=== PATIENT | male | born 1965 | race Caucasian/White ===

== ENCOUNTER 2019-01-16 08:03 | Day surgery (SDC) | payer BC ==
[~2019-01-16] VITALS: Ht 177.8 cm; Wt 124.7 kg
[2019-01-16] MEDS ORDERED: MUPIROCIN 2% TOPICAL OINTMENT 22 GM ONE (14:10)
[2019-01-16] MEDS ORDERED: PROPOFOL 200MG/ 20ML VIAL (DIPRIVAN) IV ONE (14:10)
[2019-01-16] MEDS ORDERED: MIDAZOLAM HCL 5 MG/ML VIAL (VERSED) IV ONE (14:10)
[2019-01-16] MEDS ORDERED: LR 1,000 ML IV.SOLN IV ONE (14:10)
[2019-01-16] MEDS ORDERED: LEVOFLOXACIN 500 MG/D5W 100 ML PIGGYBACK IV ONE (14:10)
[2019-01-16] MEDS ORDERED: OXYMETAZOLINE HCL 0.05% NASAL SPRAY NS ONE (14:10)
[2019-01-16] MEDS ORDERED: ONDANSETRON HCL 4 MG/2 ML VIAL ONE (14:10)
[2019-01-16] MEDS ORDERED: EPINEPHrine 1 MG/ML AMP ONE (14:10)
[2019-01-16] MEDS ORDERED: SEVOFLURANE 15 MIN GAS INH ONE (14:10)
[2019-01-16] MEDS ORDERED: NS IRRIG SOLN 1000 ML IR ONE (14:10)
[2019-01-16] MEDS ORDERED: DEXAMETHASONE SOD PHOSPHATE 4 MG/ML VIAL ONE (14:10)
[2019-01-16] MEDS ORDERED: BACITRACIN 1 GM OINT TP ONE (14:10)
[2019-01-16] MEDS ORDERED: WATER FOR IRRIGATION,STERILE 1,000 ML IRRIG.SOLN IR ONE (14:10)
[2019-01-16] MEDS ORDERED: fentaNYL CITRATE 250 MCG/5 ML AMP ONE (14:10)
[2019-01-16] MEDS ORDERED: NS 250 ML IV.SOLN IV ONE (14:10)
[2019-01-16] MEDS ORDERED: LIDOCAINE/EPI 1% 1:100000 20 ML VIAL INJ ONE (14:10)
[2019-01-16] MEDS ORDERED: ROCURONIUM BROMIDE 10 MG/ML (ZEMURON) ONE (14:10)
[2019-01-16] MEDS ORDERED: LR 1,000 ML IV SCH (14:14)
[2019-01-16] MEDS ORDERED: MORPHINE 4 MG/ML INJ. SYRINGE IVP PRN ×3 (14:15)
[2019-01-16] MEDS ORDERED: METOCLOPRAMIDE HCL 10 MG/2 ML VIAL IVP PRN (14:15)
[2019-01-16] MEDS ORDERED: ALBUTEROL SULFATE 0.083% 2.5 MG/3 ML VIAL.NEB INH ONE ×2 (15:15→15:23)
[2019-01-16] MEDS ORDERED: MORPHINE 4 MG/ML INJ. SYRINGE ONE (15:27)
[2019-01-16] MEDS ORDERED: MIDAZOLAM HCL 2 MG/2 ML VIAL (VERSED) IVP ONE (15:30)
[2019-01-16] MEDS ORDERED: MIDAZOLAM HCL 2 MG/2 ML VIAL (VERSED) ONE (15:42)
[2019-01-16 16:34] VITALS: BP_SYST 156
[2019-01-16] MEDS ORDERED: HYDROcodone/ACETAMIN 5-325 MG TAB (NORCO/ VICODIN) PO ONE (16:45)
[2019-01-16] MEDS ORDERED: HYDROcodone/ACETAMIN 5-325 MG TAB (NORCO/ VICODIN) ONE (16:53)
== END 2019-01-16 17:25 | disposition home or self-care (01) ==
LOC: SDS 08:03 → SMU 08:03 → SDS 17:25
PROVIDERS: ATTEND Otolaryngology
DX: J34.2 Deviated nasal septum (principal); J32.9 Chronic sinusitis, unspecified; M54.5 Low back pain; Z68.38 Body mass index [BMI] 38.0-38.9, adult; E66.3 Overweight; M19.90 Unspecified osteoarthritis, unspecified site; G62.9 Polyneuropathy, unspecified; J45.998 Other asthma
CPT/HCPCS: 30140; 30520; 31255; 31267; 31298; 87070 ×2; 87075; 87101; 88305; 88311; 94640 ×2; C1726; J0171; J1100; J1956; J2250; J2270; J2405; J2704; J3010; J3465; J7050; J7120; J7613